=== PATIENT | female | born 1985 | race Caucasian/White ===

== ENCOUNTER 2020-06-09 07:27 | Day surgery (SDC) | payer BC ==
[2020-06-09] MEDS ORDERED: Levofloxacin 500 mg/D5W 100 ml Premix Bag ONE (08:37)
[2020-06-09] MEDS ORDERED: Iothalamate Meglumine 60% 50 ML VIAL FS ONE (09:49)
[2020-06-09] MEDS ORDERED: Fentanyl 100 MCG/2 ML VIAL ONE ×2 (10:04→12:20)
[2020-06-09] MEDS ORDERED: Midazolam HCl 2 mg/2 ml Vial ONE (10:04)
[2020-06-09] MEDS ORDERED: PROPOFOL 200 MG/20 ML VIAL ONE (11:00)
[2020-06-09] MEDS ORDERED: Lidocaine 1% PF 5 ML VIAL ONE (11:00)
[2020-06-09] MEDS ORDERED: Ondansetron PF 4 MG/2 ML Vial ONE (11:00)
[2020-06-09] MEDS ORDERED: Oxybutynin 5 MG TAB ONE (13:25)
[2020-06-09] MEDS ORDERED: Ketorolac Tromethamine 30 MG/ML VIAL ONE (13:26)
--- NOTE | 2020-06-09 14:03 | RAD ---
EXAM: XR IVP Retrograde PROVIDED CLINICAL HISTORY: Ureteroscopy. COMPARISON: None FINDINGS/IMPRESSION: Initial image demonstrates guidewire in place overlying the expected location of the left ureter and left renal collecting system. There is suggestion of a faint small calcification overlying the inferior pole left renal collecting system likely representing a ureteral calculus. Subsequent image demonstrates a sheath in place with a catheter directed into the region of the inferior pole left renal calyx. Final image demonstrates ureteral stent in place. Correlation with intraoperative findin gs is recommended
--- NOTE | 2020-06-09 15:45 | OP ---
DATE OF PROCEDURE: 06/09/2020 PREOPERATIVE DIAGNOSES: Left ureteral stone, left renal stone. POSTOPERATIVE DIAGNOSES: Left ureteral stone, left renal stone. PROCEDURES PERFORMED: Left ureteroscopy, laser lithotripsy, basket extraction, retrograde pyelogram, intraoperative interpretation of radiologic imaging, and 6 x 24 double-J ureteral stent placement. Laser lithotripsy was performed for both left ureteral and left renal stones. ANESTHESIA: General. COMPLICATIONS: None. ESTIMATED BLOOD LOSS: None. SPECIMEN: Left stone fragments. DESCRIPTION OF PROCEDURE: After informed consent, the patient was taken to the operating room, transferred to the table on her own power. Anesthesia was established. Time-out was performed showing correct patient, site, and procedure. Preoperative antibiotics were administered. She was prepped and draped in the lithotomy position. I gently inserted the rigid cystoscope and cannulated the left ureter with a wire, which was passed up to the level of the renal pelvis. The scope was withdrawn and access sheath placed over this into the proximal ureter under fluoroscopic guidance. Retrograde pyelogram was performed through this showing good filling of the proximal ureter with a filling defect at the UPJ and hydronephrosis beyond. Flexible ureteroscope was advanced through this into the proximal ureter where the stone was identified at the UPJ. This was treated with a 273 micron laser fiber and fragmented into several small pieces. These pieces were removed with a basket and passed off. The scope was then passed into the renal pelvis, which was systematically examined noting several stones throughout the calices. Total of 3 stones were identified even though she has 4 to [address] scan. The remaining stones likely were not yet visible in the collecting system. Each of the stones in the calices was treated with a laser fiber on dusting settings and then a few small pieces removed. The collecting system was then re-examined, noting no clinically significant stone fragments. The collecting system was filled with contrast before removing the scope and access sheath, leaving a wire in place. A 6 x 24 double-J ureteral stent was passed over this, a curl in the kidney and curl in the bladder upon removing the wire. The bladder was then drained. String was left attached to the patient's suprapubic area with a Tegaderm for her to remove in 5 days. She was awoken from anesthesia, transferred back to her hospital bed, and taken to PACU in stable condition, where she will be discharged home upon recovery. Job ID: [id number]
[2020-06-16 20:09] LABS: CA Oxalate Dihydrate 20 % (.); CA Oxalate Monohydrate 30 % (.); Color Brown (.); Stone Weight 31 mg (.)
== END 2020-06-09 15:10 | disposition home or self-care (01) ==
LOC: SDC 07:27
PROVIDERS: ATTEND Urology
PROC: 0TC38ZZ Extirpation of Matter from Right Kidney Pelvis, Via Natural or Artificial Opening Endoscopic (ICD-10-PCS; principal; 2020-06-09)
PROC: 0TC48ZZ Extirpation of Matter from Left Kidney Pelvis, Via Natural or Artificial Opening Endoscopic (ICD-10-PCS; principal; 2020-06-09)
PROC: 0TC68ZZ Extirpation of Matter from Right Ureter, Via Natural or Artificial Opening Endoscopic (ICD-10-PCS; principal; 2020-06-09)
PROC: 0T788DZ Dilation of Bilateral Ureters with Intraluminal Device, Via Natural or Artificial Opening Endoscopic (ICD-10-PCS; principal; 2020-06-09)
PROC: 0TC78ZZ Extirpation of Matter from Left Ureter, Via Natural or Artificial Opening Endoscopic (ICD-10-PCS; principal; 2020-06-09)
DX: N13.2 Hydronephrosis with renal and ureteral calculous obstruction (principal)
CPT/HCPCS: 74420; 82365; 88300; J1885; J1956; J2250; J2405; J2704; J3010